=== PATIENT | female | born 1940 ===

== ENCOUNTER 2017-12-08 08:29 | Outpatient (CLI) | payer OTHER | END 2017-12-08 08:34 | disposition home or self-care (01) | LOC: SONOGRAMA 08:29 | DX: E04.1 Nontoxic single thyroid nodule (principal) ==

== ENCOUNTER 2018-05-07 07:19 | Outpatient (CLI) | payer OTHER | END 2018-05-07 09:09 | disposition home or self-care (01) | LOC: NUCLEAR 07:19 | DX: I11.9 Hypertensive heart disease without heart failure (principal); E11.9 Type 2 diabetes mellitus without complications; R07.2 Precordial pain; J45.22 Mild intermittent asthma with status asthmaticus; R94.31 Abnormal electrocardiogram [ECG] [EKG] | CPT/HCPCS: 78452; 93017; A9500; J1250 ==